=== PATIENT | male | born 1960 | race Two or more races ===

== ENCOUNTER 2019-11-07 00:23 | Inpatient (IN) | payer MEDICAID ==
[~2019-11-07] VITALS: Ht 167.6 cm; Wt 105.7 kg
[2019-11-07 01:23] LABS: Urine Bacteria NONE SEEN /hpf (None Seen); Urine Blood 1+ /uL (Negative); Urine Specific Gravity 1.006 (1.001-1.035); Urine WBC 35 /hpf (0 - 3)
[2019-11-07 02:32] LABS: Basophils # (auto) 0 uL; Basophils % (auto) 0.4 % (0.0-2.0); Eosinophils # (auto) 0 uL; Eosinophils % (auto) 0.8 % (0.0-7.0); Hematocrit 46.1 % (41.0-53.0); Hemoglobin 15.7 g/dL (13.5-17.5); Lymphocytes # (auto) 1.6 uL; Lymphocytes % (auto) 27.7 % (10.0-50.0); Mean Corpuscular Hgb Conc. 34.1 g/dL (32.0-36.0); Monocytes # (auto) 0.4 uL; Monocytes % (auto) 7.5 % (0.0-12.0); Neutrophils # (auto) 3.6 uL; Neutrophils % (auto) 63.6 % (37.0-80.0); Nucleated Red Blood Cells % 0.1 %; Platelet Count (auto) 225 10^3/uL (140-450); Red Blood Cells 5.06 10^6/uL (4.5-5.90); Red Cell Distribution Width 13.4 % (11.8-14.3); White Blood Cell 5.7 10^3/uL (4.4-10.8)
[2019-11-07 02:49] LABS: Albumin 3.8 g/dL (3.4-5.0); Calcium 8.4 mg/dL (8.5-10.1); Potassium 4.2 mmol/L (3.5-5.1)
[2019-11-07 02:53] LABS: BUN/Creatinine Ratio 14.4; Bilirubin, Total 0.5 mg/dL (0.2-1.0)
[2019-11-07] MEDS ORDERED: SODIUM CHLORIDE 0.9% 1,000 ML IV ONE (06:29)
[2019-11-07] MEDS ORDERED: SODIUM CHLORIDE 0.9% 500 ML IVB ONE (06:29)
[2019-11-07] MEDS ORDERED: cefTRIAXone 1GM/50ML D5W 50 ML IV ONE ×2 (06:30→11:00)
[2019-11-07] MEDS: SODIUM CHLORIDE 0.9% 1,000 ML IV SCH ×2 (10:55→18:32)
[2019-11-07] MEDS ORDERED: TEMAZEPAM 15 MG CAP PO PRN (11:00)
[2019-11-07] MEDS ORDERED: MORPHINE SULF INJ 2 MG/ML SYRINGE 1ML IV PRN (11:00)
[2019-11-07] MEDS ORDERED: ACETAMINOPHEN 500 MG TAB PO PRN (11:00)
[2019-11-07] MEDS ORDERED: traMADol HCL 50 MG TAB PO PRN (11:00)
[2019-11-07] MEDS ORDERED: PROMETHAZINE HCL 25 MG/ML 1ML IV PRN (11:00)
[2019-11-07 13:00] VITALS: BP 157/94
[2019-11-07 17:00] VITALS: BP 131/67
--- NOTE | 2019-11-07 19:45 | NUR ---
Opening Shift Note Assumed care of patient, AOX4. No S/S of distress/SOB or pain. Fall and safety precautions in place. Call light within reach and able to use. Instructed/discussed POC, patient verbalized understanding and in agreement. Will continue to monitor for changes Q1hr and PRN.
[2019-11-07] MEDS: FAMOTIDINE 20 MG TAB PO SCH (21:41)
[2019-11-07 22:00] VITALS: BP 134/75
--- NOTE | 2019-11-08 04:49 | NUR ---
IV removal IV DC'd with clean sterile technique, catheter fully intact. Pressure dressing applied to site. Patient tolerated well.
--- NOTE | 2019-11-08 04:50 | NUR ---
IV insertion IV access obtained, via clean sterile technique by inserting 20 gauge catheter at Right Forearm after 2 attempts. IV secured properly. No trauma to site. Patient tolerated well.
[2019-11-08 05:00] VITALS: BP 111/58
[2019-11-08] MEDS: SODIUM CHLORIDE 0.9% 1,000 ML IV SCH ×2 (06:12→16:47)
--- NOTE | 2019-11-08 07:30 | NUR ---
Opening Shift Note Assumed care of patient, awake and alert. No S/S of distress/SOB or pain. Instructed on POC and to call for assist PRN, will continue to monitor for changes Q1hr and PRN.
[2019-11-08 08:46] VITALS: BP 156/94
[2019-11-08] MEDS: cefTRIAXone 1GM/50ML D5W 50 ML IV SCH (09:21)
[2019-11-08] MEDS: FAMOTIDINE 20 MG TAB PO SCH ×2 (10:40→21:16)
[2019-11-08 13:26] VITALS: BP 147/93
[2019-11-08 17:01] VITALS: BP 149/86
--- NOTE | 2019-11-08 19:40 | NUR ---
Opening Shift Note Assumed care of patient, awake and alert. No S/S of distress/SOB or pain. Fall and safety precautions in place. Call light within reach and able to use. Instructed/discussed POC, patient verbalized understanding and in agreement. All questions/concerns addressed. Will continue to monitor for changes Q1hr and PRN
--- NOTE | 2019-11-08 19:52 | NUR ---
CLOSING NOTES PT RESTING IN BED. NO DISTRESS NOTED. PT HAD DENIED ANY PAIN ALL DAY TODAY. TOLERATE HIS DIET WELL. AMBULATES FREQUENTLY.
[2019-11-08 22:00] VITALS: BP 145/81
[2019-11-09] MEDS: SODIUM CHLORIDE 0.9% 1,000 ML IV SCH (02:49)
[2019-11-09 05:29] LABS: Basophils # (auto) 0 uL; Basophils % (auto) 0.5 % (0.0-2.0); Eosinophils # (auto) 0 uL; Eosinophils % (auto) 0.7 % (0.0-7.0); Hemoglobin 16.2 g/dL (13.5-17.5); Lymphocytes # (auto) 1.4 uL; Lymphocytes % (auto) 23.5 % (10.0-50.0); Mean Corpuscular Hemoglobin 31.1 pg (28.0-32.0); Mean Corpuscular Hgb Conc. 34.4 g/dL (32.0-36.0); Mean Corpuscular Volume 90.6 fL (80.0-100.0); Monocytes # (auto) 0.4 uL; Monocytes % (auto) 6.5 % (0.0-12.0); Neutrophils # (auto) 4.2 uL; Neutrophils % (auto) 68.8 % (37.0-80.0); Platelet Count (auto) 231 10^3/uL (140-450); Red Blood Cells 5.19 10^6/uL (4.5-5.90); Red Cell Distribution Width 13.2 % (11.8-14.3); White Blood Cell 6.1 10^3/uL (4.4-10.8)
[2019-11-09 05:50] VITALS: BP 151/82
[2019-11-09 05:51] LABS: Potassium 4.1 mmol/L (3.5-5.1)
[2019-11-09 05:59] LABS: Magnesium 2.3 mg/dL (1.6-2.6)
--- NOTE | 2019-11-09 07:25 | NUR ---
Opening Note Received report from production shift supervisor RN. Patient is awake, alert and oriented. Patient is on room air, respirations even and unlabored. Patient denies pain at this time. Reviewed plan of care with patient, patient verbalized understanding. Bed in low and locked position, call light within reach. Will continue to monitor Q1 hour and PRN.
[2019-11-09] MEDS: cefTRIAXone 1GM/50ML D5W 50 ML IV SCH (08:45)
[2019-11-09 09:00] VITALS: BP 158/98
[2019-11-09] MEDS: FAMOTIDINE 20 MG TAB PO SCH (09:52)
--- NOTE | 2019-11-09 10:21 | NUR ---
Dr. Richards at bedside Discussing plan of care with patient and this RN. Patient to discharge home today and follow up out patient with urology. Will continue to monitor
[2019-11-09] MEDS ORDERED: AML5T PO (11:51)
[2019-11-09] MEDS ORDERED: CIPR500T4 PO (11:51)
[2019-11-09] MEDS ORDERED: amLODIPine BESYLATE 5 MG TAB PO ONE (12:00)
[2019-11-09 12:14] VITALS: BP 158/98
--- NOTE | 2019-11-09 12:58 | NUR ---
Discharge Discharge instructions given as ordered. Encourage to follow up with PMD and urology as instructed. Patient provided with information for Dr. Frank, urgent care and [facility]. New prescriptions electronically sent to patients pharmacy. All questions and concerns addressed. Patient verbalized understanding. Medication reconciliation form completed and copy given to patient. IV catheter removed, catheter intact, pressure dressing applied. Patient ambulated to private vehicle with all personal belongings. No signs or symptoms of distress noted at this time.
== END 2019-11-09 12:50 | disposition home or self-care (01) | DRG 465 ==
LOC: ER 00:25 → OVERFLOW 00:26 → CENTRAL 11:34
PROVIDERS: ADMIT Internal Medicine; ATTEND Internal Medicine
DX: N20.0 Calculus of kidney (principal); N12 Tubulo-interstitial nephritis, not specified as acute or chronic; K76.0 Fatty (change of) liver, not elsewhere classified; I10 Essential (primary) hypertension; K21.9 Gastro-esophageal reflux disease without esophagitis; R31.0 Gross hematuria; K44.9 Diaphragmatic hernia without obstruction or gangrene; E66.9 Obesity, unspecified; Z68.37 Body mass index [BMI] 37.0-37.9, adult
CPT/HCPCS: 36415; 74176; 80048; 80053; 81001; 82150; 83690; 83735; 85025; 87086; 96365; G0378; J0696

== ENCOUNTER 2021-06-27 12:49 | Emergency (ER) | payer MEDICAID ==
[~2021-06-27] VITALS: Ht 160 cm; Wt 99.8 kg
[~2021-06-27 12:49] MED LIST: AML5T PO; CIPR500T4 PO
[2021-06-27 13:34] LABS: Basophils # (auto) 0 10 ^3/uL (0-0.2); Basophils % (auto) 0.3 % (0.0-2.0); Eosinophils # (auto) 0 10 ^3/uL (0-0.8); Eosinophils % (auto) 0.2 % (0.0-7.0); Hematocrit 45.4 % (41.0-53.0); Hemoglobin 15.6 g/dL (13.5-17.5); Lymphocytes # (auto) 1.1 10 ^3/uL (0.4-5.4); Lymphocytes % (auto) 10.3 % (10.0-50.0); Mean Corpuscular Hemoglobin 30.4 pg (28.0-32.0); Mean Corpuscular Hgb Conc. 34.4 g/dL (32.0-36.0); Mean Corpuscular Volume 88.4 fL (80.0-100.0); Monocytes # (auto) 0.9 10 ^3/uL (0-1.3); Monocytes % (auto) 8.4 % (0.0-12.0); Neutrophils # (auto) 8.7 10 ^3/uL (1.6-8.6); Neutrophils % (auto) 80.8 % (37.0-80.0); Nucleated Red Blood Cells % 0.1 %; Red Blood Cells 5.14 10^6/uL (4.5-5.90); White Blood Cell 10.8 10^3/uL (4.4-10.8)
[2021-06-27 13:54] LABS: Partial Thromboplastin Time 27.9 sec (23.6-33.0)
[2021-06-27 13:58] LABS: Albumin 3.6 g/dL (3.4-5.0); Calcium 9.1 mg/dL (8.5-10.1); Potassium 3.7 mmol/L (3.5-5.1)
[2021-06-27 14:01] LABS: BUN/Creatinine Ratio 10.6; Bilirubin, Total 0.7 mg/dL (0.2-1.0); Total Protein 8.8 g/dL (6.4-8.2)
[2021-06-27 14:04] LABS: Urine Bacteria FEW /hpf (None Seen); Urine Blood 1+ /uL (Negative); Urine Specific Gravity 1.016 (1.001-1.035); Urine WBC 80 /hpf (0 - 3); Urine WBC Clumps PRESENT /hpf (None Seen)
[2021-06-27 15:13] VITALS: BP 149/87
== END 2021-06-27 15:16 | disposition home or self-care (01) ==
LOC: ER 12:49
DX: N20.0 Calculus of kidney (principal); N39.0 Urinary tract infection, site not specified; K21.9 Gastro-esophageal reflux disease without esophagitis; I10 Essential (primary) hypertension
CPT/HCPCS: 36415; 74176; 80053; 81001; 82150; 83690; 85025; 85610; 85730; 93005